=== PATIENT | male | born 1995 | race Caucasian/White ===

== ENCOUNTER 2024-08-28 03:14 | Emergency (ER) | payer OTHER ==
[2024-08-28 03:27] VITALS: BP 128/89; PULSE 93; RESP 16; TEMP 98.8; BMI 27.2
[2024-08-28] MEDS ORDERED: AMOX TR/POT CLAV 875MG/125MG TABLETS (FP) ONE (03:32)
[2024-08-28] MEDS: AMOX TR/POT CLAV 875MG/125MG TABLETS (FP) PO ONE (03:33)
== END 2024-08-28 03:38 | disposition home or self-care (01) ==
LOC: FER 03:14
DX: S20.312A Abrasion of left front wall of thorax, initial encounter (principal); W50.3XXA Accidental bite by another person, initial encounter; Y35.811A Legal intervention involving manhandling, law enforcement official injured, initial encounter
CPT/HCPCS: 99283-25